=== PATIENT | male | born 1965 | race Two or more races ===

== ENCOUNTER 2017-03-03 17:23 | Emergency (ER) | payer OTHER | END 2017-03-03 17:55 | disposition home or self-care (01) | LOC: CED 17:23 → CFTX 17:23 | DX: K05.10 Chronic gingivitis, plaque induced (principal); I10 Essential (primary) hypertension; E11.9 Type 2 diabetes mellitus without complications; I25.10 Atherosclerotic heart disease of native coronary artery without angina pectoris; F17.210 Nicotine dependence, cigarettes, uncomplicated | CPT/HCPCS: 96372; 99283; J1885 ==

== ENCOUNTER 2017-05-04 23:09 | Emergency (ER) | payer OTHER | END 2017-05-05 00:51 | disposition home or self-care (01) | LOC: CED 23:09 | DX: I10 Essential (primary) hypertension (principal); F41.9 Anxiety disorder, unspecified; E11.9 Type 2 diabetes mellitus without complications; F17.210 Nicotine dependence, cigarettes, uncomplicated; Z98.890 Other specified postprocedural states; Z79.899 Other long term (current) drug therapy; Z79.84 Long term (current) use of oral hypoglycemic drugs | CPT/HCPCS: 87070; 87205; 99283 ==